=== PATIENT | female | born 1990 | race Caucasian/White ===

== ENCOUNTER 2019-05-04 16:57 | Emergency (ER) | payer BC, MEDICAID ==
[2019-05-04] MEDS ORDERED: Sodium Chloride 0.9% 10 ML Syringe FLUSH PRN (18:11)
[2019-05-04 18:40] VITALS: BP 118/74
[2019-05-04] MEDS ORDERED: Lidocaine 1% 30 ML SDV INJECT ONE (19:00)
[2019-05-04] MEDS ORDERED: Acetaminophen 500 MG Tab PO ONE (19:09)
[2019-05-04 19:15] LABS: CHLORIDE,CL 103 mmol/L (98-107); SODIUM,NA 137 mmol/L (136-145)
[2019-05-04 19:18] LABS: ANION GAP 16.5 mmol/L (10-20)
[2019-05-04] MEDS ORDERED: Take Home: Amoxicillin/Clavulanate K 875-125 MG Tab, 2 Tab Pack PO ONE (19:43)
--- NOTE | 2019-05-05 06:47 | EDM.PDOC ---
ED HPI GENERAL MEDICAL PROBLEM - General Chief Complaint: Skin Complaint Stated Complaint: PAIN IN TAIL BONE Time Seen by Provider: 05/04/19 17:50 Source of Information: Reports: Patient History Limitations: Reports: No Limitations - History of Present Illness INITIAL COMMENTS - FREE TEXT/NARRATIVE: Pt. presents to ER with complaints of sacral/tailbone pain. Pt. states that she has been having discomfort for over a week. She has seen chiropractic for the discomfort. Pt. is currently approx. 31 weeks gestation. Pt. states that she had increased pain over the weekend and consulted chiropractic again. Chiropractor identified evidence of pilonidal cyst in area and patient was sent to ER for evaluation and treatment. Given the pt. was , [facility] was consulted on her arrival. The MANAGER [employer] requested the problem be dealt with in our facility. Pt. states that she has felt hot today but denies any chills. No nausea or vomiting. No chest pain or shortness of breath. She states that the baby has been very active today. Onset Date: 04/25/19 Location: Reports: Back Quality: Reports: Ache, Throbbing Severity: Severe Improves with: Reports: Rest Worsens with: Reports: Movement Associated Symptoms: Reports: Fever/Chills Sacral Pain Score (Numeric/FACES): 4 - Related Data Allergies Allergy/AdvReac Type Severity Reaction Status Date / Time No Known Allergies Allergy Verified 05/04/19 18:13 Home Meds: Home Meds Buprenorphine HCl/Naloxone HCl [Suboxone 4 mg-1 mg Sl Film] 2 film BID 05/04/19 [History] Levothyroxine [Levothroid] 137 mcg DAILY 05/04/19 [History] Vit #76/Iron,Carb/Fa [Prenatabs Rx] 1 tab DAILY 05/04/19 [History] Past Medical History - Past Health History Medical/Surgical History: Denies Medical/Surgical History Psychiatric History: Reports: Addiction Social & Family History - Tobacco Use Smoking Status *Q: Current Every Day Smoker Years of Tobacco use: 16 Packs/Tins Daily: 1 - Recreational Drug Use Recreational Drug Use: Yes Drug Use in Last 12 Months: No 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, Marijuana/Hashish, Methamphetamine Recreational Drug Use Frequency: Not Used In Over 6 Months ED ROS GENERAL - Review of Systems Review Of Systems: See Below Constitutional: Reports: No Symptoms HEENT: Reports: No Symptoms Respiratory: Reports: No Symptoms Cardiovascular: Reports: No Symptoms Endocrine: Reports: No Symptoms GI/Abdominal: Reports: No Symptoms : Reports: No Symptoms Musculoskeletal: Reports: Back Pain Skin: Reports: No Symptoms Neurological: Reports: No Symptoms Psychiatric: Reports: No Symptoms Hematologic/Lymphatic: Reports: No Symptoms Immunologic: Reports: No Symptoms ED EXAM, SKIN/RASH Exam: See Below Exam Limited By: No Limitations General Appearance: Alert, WD/WN, No Apparent Distress Back Exam: Other (large pilonidal abscess noted to cleft of buttock with surrounding cellulitis.) Extremities: Normal Inspection, Normal Range of Motion, Non-Tender, No Pedal Edema, Normal Capillary Refill Neurological: Alert, Oriented, CN II-XII Intact, Normal Cognition, Normal Gait, Normal Reflexes, No Motor/Sensory Deficits ED SKIN PROCEDURES - I&D Site: pilonidal cyst Skin Prep: Chlorhexidine (Hibiciens) Local Anesthesia: Lidocaine: 1% Plain Local Anesthetic Volume: 4cc Area Incised With: 11 Blade Drainage: Purulent, Clear, Large Amount Probed to Break Up Loculations: Yes Packed With: 1/4 in. Iodoform Complications: No Progress/Comments: Approx. 20 ml of purulent foul smelling discharge was expressed from the area. The abscess was packed with 1/4 in. iodoform. Pt. tolerated this well. Course - Vital Signs Last Recorded V/S: Last Vital Signs Temp 37.7 C 05/04/19 17:50 Pulse 108 H 05/04/19 17:50 Resp 18 05/04/19 17:50 BP 118/74 05/04/19 17:50 Pulse Ox 99 05/04/19 17:50 - Orders/Labs/Meds Orders: Active Orders 24 hr Category Date Time Status CULTURE BLOOD [BC] Stat Lab 05/04/19 18:30 Received CULTURE BLOOD [BC] Stat Lab 05/04/19 18:40 Received CULTURE WOUND [RM] Stat Lab 05/04/19 19:40 Received Blood Culture x2 Reflex Set [OM.PC] Stat Oth 05/04/19 18:12 Ordered Peripheral IV Insertion Adult [OM.PC] Routine Oth 05/04/19 18:12 Ordered Labs: Laboratory Tests 05/04/19 05/04/19 05/04/19 Range/Units 18:30 18:30 18:30 WBC 10.8 H (4.0-10.0) x10^3/uL RBC 3.60 L (4.00-5.50) x10^6/uL Hgb 11.3 L (12.0-16.0) g/dL Hct 33.8 (33.0-47.0) % MCV 93.9 H D (78.0-93.0) fL MCH 31.4 (26.0-32.0) pg MCHC 33.4 (32.0-36.0) g/dL RDW Coeff of Aminata 13.5 (10.0-15.0) % Plt Count 199 D (130-400) x10^3/uL Neut % (Auto) 82.1 H (50.0-80.0) % Lymph % (Auto) 12.0 L (25.0-50.0) % [place] % (Auto) 5.7 (2.0-11.0) % Eos % (Auto) 0.1 (0.0-4.0) % Baso % (Auto) 0.1 L (0.2-1.2) % PT 9.3 L (10.0-12.8) SEC INR 0.8 L (2.0-3.5) Sodium 137 (136-145) mmol/L Potassium 4.5 (3.5-5.1) mmol/L Chloride 103 (98-107) mmol/L Carbon Dioxide 22 (21-32) mmol/L Anion Gap 16.5 (10-20) mmol/L BUN 9 (7-18) mg/dL Creatinine 0.5 L (0.55-1.02) mg/dL Est Cr Clr Drug Dosing TNP Estimated GFR (MDRD) > 60 Glucose 88 (74-106) mg/dL Lactic Acid (0.4-2.0) mmol/L Calcium 9.0 (8.5-10.1) mg/dL Corrected Calcium 10.36 H (8.5-10.1) mg/dL Total Bilirubin 0.4 (0.2-1.0) mg/dL AST 33 (15-37) U/L ALT 14 (14-59) U/L Alkaline Phosphatase 133 H (46-116) U/L C-Reactive Protein 8.3 H (<=0.9) mg/dL Total Protein 7.0 (6.4-8.2) g/dL Albumin 2.3 L (3.4-5.0) g/dL Globulin 4.7 Albumin/Globulin Ratio 0.49 05/04/19 Range/Units 18:30 WBC (4.0-10.0) x10^3/uL RBC (4.00-5.50) x10^6/uL Hgb (12.0-16.0) g/dL Hct (33.0-47.0) % MCV (78.0-93.0) fL MCH (26.0-32.0) pg MCHC (32.0-36.0) g/dL RDW Coeff of Aminata (10.0-15.0) % Plt Count (130-400) x10^3/uL Neut % (Auto) (50.0-80.0) % Lymph % (Auto) (25.0-50.0) % [place] % (Auto) (2.0-11.0) % Eos % (Auto) (0.0-4.0) % Baso % (Auto) (0.2-1.2) % PT (10.0-12.8) SEC INR (2.0-3.5) Sodium (136-145) mmol/L Potassium (3.5-5.1) mmol/L Chloride (98-107) mmol/L Carbon Dioxide (21-32) mmol/L Anion Gap (10-20) mmol/L BUN (7-18) mg/dL Creatinine (0.55-1.02) mg/dL Est Cr Clr Drug Dosing Estimated GFR (MDRD) Glucose (74-106) mg/dL Lactic Acid 2.2 H* (0.4-2.0) mmol/L Calcium (8.5-10.1) mg/dL Corrected Calcium (8.5-10.1) mg/dL Total Bilirubin (0.2-1.0) mg/dL AST (15-37) U/L ALT (14-59) U/L Alkaline Phosphatase (46-116) U/L C-Reactive Protein (<=0.9) mg/dL Total Protein (6.4-8.2) g/dL Albumin (3.4-5.0) g/dL Globulin Albumin/Globulin Ratio Meds: Medications Discontinued Medications Generic Name Dose Route Start Last Admin Trade Name Karen PRN Reason Stop Dose Admin Acetaminophen 1,000 mg 05/04/19 19:09 05/04/19 19:15 Tylenol Extra Strength PO 05/04/19 19:10 1,000 mg ONETIME ONE Administration Amoxicillin/Clavulanate Potassium 1 packet 05/04/19 19:43 05/04/19 19:50 Take Home: Amox/Clavulanate 875-12, 2 Tab Pac PO 05/04/19 19:44 1 packet ONETIME ONE Administration Lidocaine HCl 30 ml 05/04/19 19:00 05/04/19 19:20 Xylocaine-Mpf 1% INJECT 05/04/19 19:01 4 ml ONETIME ONE Administration Sodium Chloride 10 ml 05/04/19 18:11 05/04/19 18:36 Saline Flush FLUSH 10 ml ASDIRECTED PRN Administration Keep Vein Open Departure - Departure Time of Disposition: 19:54 Disposition: Home, Self-Care 01 Condition: Good Clinical Impression: Pilonidal abscess of cleft - Discharge Information Instructions: Incision and Drainage of a Pilonidal Cyst Referrals: Monica Davila PA-C [Primary Care Provider] - Forms: ED Department Discharge Additional Instructions: Repack abscess on Saturday Follow-up in clinic for recheck on Saturday as well Augmentin 875mg twice daily for 10 days Try to keep the area dry Tylenol as needed for pain control. Return to ER if you have worsening discomfort, severe fever, lightheadedness - Problem List Review Problem List Initiated/Reviewed/Updated: Yes - My Orders Last 24 Hours: My Active Orders 05/04/19 18:12 Blood Culture x2 Reflex Set [OM.PC] Stat Peripheral IV Insertion Adult [OM.PC] Routine 05/04/19 18:30 CULTURE BLOOD [BC] Stat 05/04/19 18:40 CULTURE BLOOD [BC] Stat 05/04/19 19:40 CULTURE WOUND [RM] Stat - Assessment/Plan Last 24 Hours: My Active Orders 05/04/19 18:12 Blood Culture x2 Reflex Set [OM.PC] Stat Peripheral IV Insertion Adult [OM.PC] Routine 05/04/19 18:30 CULTURE BLOOD [BC] Stat 05/04/19 18:40 CULTURE BLOOD [BC] Stat 05/04/19 19:40 CULTURE WOUND [] Stat Plan: Repack abscess on Saturday Follow-up in clinic for recheck on Saturday as well Augmentin 875mg twice daily for 10 days Try to keep the area dry Tylenol as needed for pain control. Return to ER if you have worsening discomfort, severe fever, lightheadedness
== END 2019-05-04 19:54 | disposition home or self-care (01) ==
LOC: VM.ED 16:57
DX: L05.01 Pilonidal cyst with abscess (principal); F17.210 Nicotine dependence, cigarettes, uncomplicated; Z79.899 Other long term (current) drug therapy
CPT/HCPCS: 10080; 36415; 80053; 83605; 85025; 85610; 86140; 87040; 87070; 87077; 99283; A9270; J2001